=== PATIENT | female | born 1950 | race Caucasian/White ===

== ENCOUNTER 2022-10-15 05:58 | Day surgery (SDC) | payer OTHER ==
[~2022-10-15] VITALS: Ht 165.1 cm; Wt 78.9 kg
[~2022-10-15 05:58] MED LIST: GEMTESA75 MG PO; GLUMETZA1000 MG PO; TOPROL XL50 M1 PO; ZESTRIL10 M1 PO
== END 2022-10-15 12:35 | disposition home or self-care (01) ==
LOC: CIR.AMB 05:58
PROVIDERS: ATTEND Plastic Surgery
DX: H02.834 Dermatochalasis of left upper eyelid (principal); H02.831 Dermatochalasis of right upper eyelid; I10 Essential (primary) hypertension; R00.0 Tachycardia, unspecified; Z86.16 Personal history of COVID-19; E11.9 Type 2 diabetes mellitus without complications; Z79.84 Long term (current) use of oral hypoglycemic drugs; Z20.822 Contact with and (suspected) exposure to COVID-19